=== PATIENT | female | born 1990 | race Hispanic/Latino ===

== ENCOUNTER 2017-07-29 11:10 | Emergency (ER) | payer SELFPAY ==
[2017-07-29 11:37] LABS: #Lymphocytes 0.7 thou/uL (1.20-3.40); #Monocytes 0.7 thou/uL (0.11-0.59); #Neutrophils 9.3 thou/uL (1.40-6.50); %Basophils 0.1 % (0.0-1.0); %Eosinophils 0.1 % (0.0-10.0); %Lymphocytes 6.4 % (21.0-51.0); %Monocytes 6.4 % (0.0-10.0); %Neutrophils 86.9 % (42.0-75.0); Hemoglobin 14.2 g/dL (12.0-16.0); Mean Corpuscular HGB CONC 33.9 g/dL (32.0-36.0); Mean Corpuscular Hemoglobin 29.7 pg (27.0-31.0); Mean Corpuscular Volume 87.5 fl (81.0-99.0); Mean Platelet Volume 8.7 fL (7.4-10.4); Platelet Count 185 thou/uL (130-400); RBC Distribution Width 11.4 % (11.5-14.5); Red Blood Cell (RBC) Count 4.78 mill/uL (4.20-5.40); White Blood Cell (WBC) Count 10.7 thou/uL (4.8-10.8)
[2017-07-29 11:43] LABS: Bilirubin Negative (Negative); Blood, Urine Negative (Negative); Clarity CLOUDY (Clear); Glucose, Urine (Dipstick) Negative (Negative); Leukocyte Small (Negative); Nitrite Negative (Negative); Protein, Urine (Dipstick) Negative (Neg-Trace); Specific Gravity, Urine 1.022 (1.002-1.036)
[2017-07-29 11:45] LABS: Bacteria/HPF 2+ HPF (None Seen); Hyaline Casts/LPF 4-6 HYALINE CAST LPF (0-3 Hyaline); Pathc Cast-AUWi Flag 1.49 (0-2.49); RBC/HPF 0-3 HPF (0-3); Squamous Epithelial 21-50 HPF (0-3)
[2017-07-29 11:46] LABS: Pregnancy Test - Urine (BHCG) Negative (Negative); Pregu Control Background? CLEAR/WHITE (CLR/WHITE); Pregu Control Bar Appear? YES (CONTROL BAR); Specific Gravity 1.022 (1.002-1.036); Yeast-AUWi Flag 35.6 (0-25.0)
[2017-07-29 11:54] LABS: Yeast-All Forms None Seen HPF (None Seen)
[2017-07-29 11:56] LABS: ALT (SGPT) 11 U/L (8-55); AST (SGOT) 14 U/L (5-34); Albumin 4.4 g/dL (3.5-5.0); Alkaline Phosphatase 72 U/L (40-150); Anion Gap 12 mmol/L (10-20); BUN (Urea Nitrogen) 15 mg/dL (7.0-18.7); Bilirubin, Total 0.5 mg/dL (0.2-1.2); Calc. Creatinine Clearance 0 mL/min (70-130); Calcium 9.1 mg/dL (7.8-10.44); Carbon Dioxide 24 mmol/L (22-29); Chloride 105 mmol/L (98-107); Estimated GFR-MDRD Greater than 90; Globulin 3.3 g/dL (2.4-3.5); Glucose 99 mg/dL (70-105); Protein, Total 7.7 g/dL (6.0-8.3); Sodium 137 mmol/L (136-145)
[2017-07-29] MEDS ORDERED: Ondansetron HCl/PF 4 MG/2 ML Vial ONE (12:15)
== END 2017-07-29 12:43 | disposition home or self-care (01) ==
LOC: ERS 11:10
DX: R11.2 Nausea with vomiting, unspecified (principal)
CPT/HCPCS: 36415; 80053; 81003; 81015; 81025; 85025; 96374; J2405

== ENCOUNTER 2017-07-30 11:07 | Emergency (ER) | payer SELFPAY ==
[2017-07-30] MEDS ORDERED: Lidocaine 2% Viscous Solution 10 ML, Aluminum & Magnesium Hydroxide 30 ML SSW SCH ×2 (11:30)
[2017-07-30] MEDS ORDERED: Dexamethasone 4 mg/ml Vial ONE (11:37)
[2017-07-30] MEDS ORDERED: Ketorolac Tromethamine 30 MG/ML VIAL ONE (11:37)
[2017-07-30] MEDS ORDERED: Metoclopramide HCl 10 MG/2 ML VIAL ONE (11:38)
== END 2017-07-30 12:23 | disposition home or self-care (01) ==
LOC: ERS 11:07
DX: R51 Headache (principal); R10.13 Epigastric pain
CPT/HCPCS: 96374; 96375; J1100; J1885; J2765

== ENCOUNTER 2018-01-11 17:14 | Emergency (ER) | payer SELFPAY | END 2018-01-11 18:35 | disposition home or self-care (01) | LOC: ERS 17:14 | DX: J30.9 Allergic rhinitis, unspecified (principal) | CPT/HCPCS: 87081; 87430; 99283 ==

== ENCOUNTER 2019-05-08 17:06 | Emergency (ER) | payer SELFPAY | END 2019-05-08 19:00 | disposition home or self-care (01) | LOC: ERS 17:06 | DX: J02.8 Acute pharyngitis due to other specified organisms (principal) | CPT/HCPCS: 87081; 87430; 99283 ==

== ENCOUNTER 2020-08-27 14:11 | Emergency (ER) | payer OTHER, SELFPAY ==
[2020-08-27] MEDS ORDERED: Boostrix 0.5 ML (Tdap) VIAL ONE (15:20)
== END 2020-08-27 15:52 | disposition home or self-care (01) ==
LOC: ERS 14:11
DX: T24.202A Burn of second degree of unspecified site of left lower limb, except ankle and foot, initial encounter (principal); T31.0 Burns involving less than 10% of body surface; Z23 Encounter for immunization; X19.XXXA Contact with other heat and hot substances, initial encounter
CPT/HCPCS: 90471; 90715

== ENCOUNTER 2021-01-31 12:16 | Emergency (ER) | payer OTHER ==
[2021-01-31 19:39] LABS: SARS-CoV-2 PCR by NAA Not Detected (NotDetected)
== END 2021-01-31 14:30 | disposition home or self-care (01) ==
LOC: ERS 12:16
DX: J02.9 Acute pharyngitis, unspecified (principal); Z20.822 Contact with and (suspected) exposure to COVID-19
CPT/HCPCS: 99283; U0003; U0005

== ENCOUNTER 2021-08-02 20:36 | Emergency (ER) | payer MEDICAID, OTHER, SELFPAY | END 2021-08-02 22:02 | disposition home or self-care (01) | LOC: ERS 20:36 | DX: R42 Dizziness and giddiness (principal); Z79.899 Other long term (current) drug therapy | CPT/HCPCS: 99283 ==

== ENCOUNTER 2022-08-14 02:08 | Emergency (ER) | payer OTHER | END 2022-08-14 02:32 | LOC: ERS 02:08 | DX: Z02.89 Encounter for other administrative examinations (principal) | CPT/HCPCS: 99283 ==